=== PATIENT | female | born 2000 | race Caucasian/White ===

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

== ENCOUNTER → 2019-02-06 | Outpatient (REF) | payer OTHER ==
[~2019-02-06] MED LIST changes: +ACET-716 PO
== END ==
LOC: M LAB REF 12:17
PROVIDERS: ATTEND Plastic Surgery Surgery of the Hand
DX: L02.213 Cutaneous abscess of chest wall (principal)

== ENCOUNTER 2019-09-16 09:37 | Emergency (ER) | payer OTHER ==
[~2019-09-16] VITALS: Ht 165.1 cm; Wt 76.0 kg
[~2019-09-16 09:37] MED LIST changes: -ALLE25CA6 PO; +MULT25CA2 PO
--- NOTE | 2019-09-16 10:46 | REP ---
RIGHT SHOULDER, THREE VIEWS: There is no evidence of an acute fracture, dislocation or intrinsic bone disease. IMPRESSION: No fracture or dislocation. Electronically Signed by Rich Manzo MD 09/16/2019 07:53 P
[2019-09-16 10:54] VITALS: BP 129/81
== END 2019-09-16 10:55 | disposition home or self-care (01) ==
LOC: M ED 09:37
DX: S46.011A Strain of muscle(s) and tendon(s) of the rotator cuff of right shoulder, initial encounter (principal); X50.0XXA Overexertion from strenuous movement or load, initial encounter; Y92.89 Other specified places as the place of occurrence of the external cause; Y93.89 Activity, other specified; Y99.0 Civilian activity done for income or pay; Z79.3 Long term (current) use of hormonal contraceptives

== ENCOUNTER → 2019-10-04 | Outpatient (CLI) | payer OTHER ==
--- NOTE | 2019-10-06 10:56 | REP ---
MRI RIGHT SHOULDER: TECHNIQUE: Axial T2 fat sat, gradient echo, sagittal oblique T2 fat sat, coronal oblique T1, T2 fat sat. There is diffuse ill-defined high signal in the supraspinatus tendon compatible with mild tendinopathy/tendinitis. No rotator cuff tendon tear is seen. There are not significant hypertrophic degenerative changes of the acromioclavicular joint. Acromion is type I. Biceps tendon is within the bicipital groove with no tendosynovitis. There is no Hill-Sachs deformity. There is focal edematous signal in the posterior subcutaneous soft tissues superficial to the posterior deltoid muscle. Biceps labral complex is intact. There is no labral tear identified. There is no bone marrow edema or occult fracture. Very small amount of fluid is seen in the subacromial bursa. IMPRESSION: Mild supraspinatus tendinopathy/tendinitis. Mild fluid in the subacromial bursa may indicate mild bursitis. There is mild nonspecific edema in the soft tissues along the superficial surface of the posterior deltoid muscle. Electronically Signed by Rich Manzo MD 10/06/2019 02:44 P
== END ==
LOC: M RAD 08:32
PROVIDERS: ATTEND Orthopaedic Surgery Sports Medicine
DX: M25.511 Pain in right shoulder (principal); M75.81 Other shoulder lesions, right shoulder

== ENCOUNTER → 2020-07-30 | Outpatient (REF) | payer OTHER ==
[~2020-07-30] MED LIST changes: +VITA-243 PO; -VITA500T PO
[2020-07-30 15:46] LABS: CHLAMYDIA DNA AMPLIFICATION NEGATIVE (NEGATIVE); GC DNA AMPLIFICATION NEGATIVE (NEGATIVE)
== END ==
LOC: M SFHCWAGY 13:20
PROVIDERS: ATTEND Advanced Practice Midwife
DX: Z11.3 Encounter for screening for infections with a predominantly sexual mode of transmission (principal); Z12.4 Encounter for screening for malignant neoplasm of cervix; Z01.419 Encounter for gynecological examination (general) (routine) without abnormal findings; Z77.9 Other contact with and (suspected) exposures hazardous to health

== ENCOUNTER → 2024-02-20 | Outpatient (REF) | payer OTHER ==
[~2024-02-20] MED LIST changes: -CRAN400C PO; +CRANBERRY400 MG PO
== END ==
LOC: M SFHCDERM 13:07
PROVIDERS: ATTEND Physician Assistant
DX: L73.9 Follicular disorder, unspecified (principal)

== ENCOUNTER → 2025-01-16 | Outpatient (RCR) | LOC: M EMPSKH 12-25 08:12 | PROVIDERS: ATTEND Family Medicine | DX: Z11.52 Encounter for screening for COVID-19 (principal) ==

== ENCOUNTER → 2025-02-25 | Outpatient (CLI) | payer OTHER, SELFPAY ==
[2025-02-25 10:29] LABS: PLATELET COUNT, AUTOMATED 339 10^3/uL (150-450)
[2025-02-25 10:50] LABS: GC DNA AMPLIFICATION NEGATIVE (NEGATIVE)
[2025-02-25 11:19] LABS: HIV 1&2 SCREEN NEGATIVE (NEGATIVE)
[2025-02-25 11:26] LABS: HEPATITIS C VIRUS ABY INDEX < 0.02 INDEX (<0.8)
== END ==
LOC: M RAD 07:39
PROVIDERS: ATTEND Obstetrics & Gynecology
DX: O30.043 Twin pregnancy, dichorionic/diamniotic, third trimester (principal); Z3A.28 28 weeks gestation of pregnancy

== ENCOUNTER → 2025-03-12 | Outpatient (CLI) | payer OTHER | LOC: M WHC 07:12 | PROVIDERS: ATTEND Obstetrics & Gynecology | DX: O30.043 Twin pregnancy, dichorionic/diamniotic, third trimester (principal); Z3A.31 31 weeks gestation of pregnancy; O32.1XX2 Maternal care for breech presentation, fetus 2 ==

== ENCOUNTER → 2025-03-26 | Outpatient (CLI) | payer OTHER | LOC: M WHC 09:36 | PROVIDERS: ATTEND Obstetrics & Gynecology | DX: O30.043 Twin pregnancy, dichorionic/diamniotic, third trimester (principal); Z3A.32 32 weeks gestation of pregnancy; O32.1XX2 Maternal care for breech presentation, fetus 2 ==

== ENCOUNTER → 2025-04-09 | Outpatient (CLI) | payer OTHER | LOC: M WHC 08:12 | PROVIDERS: ATTEND Obstetrics & Gynecology | DX: O30.043 Twin pregnancy, dichorionic/diamniotic, third trimester (principal); Z3A.00 Weeks of gestation of pregnancy not specified ==

== ENCOUNTER → 2025-04-14 | Outpatient (REF) | payer OTHER ==
[~2025-04-14] MED LIST changes: +ASPI81TA26 PO; +FAMO1TAB11 PO; +PREN200C PO; +VALA1TAB5 PO
== END ==
LOC: M SFHCWAGY 10:19
PROVIDERS: ATTEND Specialist
DX: O30.043 Twin pregnancy, dichorionic/diamniotic, third trimester (principal); Z36.85 Encounter for antenatal screening for Streptococcus B

== ENCOUNTER 2025-04-17 13:00 | Inpatient (IN) | payer OTHER ==
[~2025-04-17] VITALS: Ht 165.1 cm; Wt 106.2 kg
[~2025-04-17 13:00] MED LIST changes: -ASPI81TA26 PO; -FAMO1TAB11 PO; -PREN200C PO; -VALA1TAB5 PO
[2025-04-17] MEDS ORDERED: VALA1TAB5 PO (13:34)
[2025-04-17] MEDS ORDERED: PREN200C PO (13:34)
[2025-04-17] MEDS ORDERED: FAMO1TAB11 PO (13:34)
[2025-04-17] MEDS ORDERED: ASPI81TA26 PO (13:34)
[2025-05-05] VITALS (9 sets, daily range): BP systolic 111–134; BP diastolic 58–76; TEMP 97.9; O2SAT 97–100
[2025-05-05] MEDS ORDERED: TUMS500C PO (07:57)
[2025-05-05] MEDS ORDERED: HOME MED LIST COMPLETE! XX SCH (08:00)
[2025-05-05] MEDS: LACTATED RINGER'S 1000 ML IV STA (08:29)
[2025-05-05 08:51] LABS: PLATELET COUNT, AUTOMATED 365 10^3/uL (150-450)
[2025-05-05] MEDS: LR 1,000 ML IV SCH ×2 (09:32→14:27)
[2025-05-05] MEDS: ceFAZolin SODIUM 2 GM in DEXTROSE 5% (D5W) ADV/MINI-BAG 50 ML IV ONE (10:03)
[2025-05-05] MEDS: BICITRA 30 ML SOLN UDC PO ONE (10:03)
[2025-05-05] MEDS ORDERED: MORPHINE PRES-FREE INJ 10 MG/10 ML VIAL As Ordered ONE (10:17)
[2025-05-05] MEDS ORDERED: dexAMETHasone 4 MG/ML 1 ML VIAL As Ordered ONE (10:21)
[2025-05-05] MEDS ORDERED: KETOROLAC 30 MG/ML 1 ML VIAL As Ordered ONE (10:21)
[2025-05-05] MEDS ORDERED: ONDANSETRON 4MG/2ML VIAL As Ordered ONE (10:22)
[2025-05-05] MEDS ORDERED: PHENYLephrine 500MCG 5ML (100MCG/ML) SYRINGE As Ordered ONE (10:40)
[2025-05-05] MEDS ORDERED: ACETAMINOPHEN 1000MG/100ML IV BAG As Ordered ONE (10:41)
[2025-05-05] MEDS ORDERED: OXYTOCIN 30UNITS IN 0.9% NaCl 500ML IV BAG IV ONE (10:41)
[2025-05-05] MEDS ORDERED: MORPHINE 4 MG/ML 1 ML VIAL IV PRN (11:30)
[2025-05-05] MEDS ORDERED: METHYLERGONOVINE MALEATE 0.2 MG/ML 1 ML VIAL IM PRN (11:30)
[2025-05-05] MEDS ORDERED: ANUSOL HC CREAM 30 GM TOP PRN (11:30)
[2025-05-05] MEDS ORDERED: RHOGAM 300MCG (1500IU) INJ IM SCH (11:30)
[2025-05-05] MEDS ORDERED: SIMETHICONE 80MG CHEW TAB PO PRN (11:30)
[2025-05-05] MEDS ORDERED: PERCOCET 5MG/325MG TAB PO PRN ×2 (11:30)
[2025-05-05] MEDS ORDERED: PERCOCET PO (11:34)
[2025-05-05] MEDS ORDERED: COLA100C5 PO (11:34)
[2025-05-05] MEDS ORDERED: FERR1TAB8 PO (11:34)
[2025-05-05] MEDS ORDERED: IBUP80TA PO (11:34)
[2025-05-05] MEDS: OXYTOCIN DRIP 30 UNITS in IV 1 EA IV SCH (12:00)
[2025-05-05] MEDS ORDERED: HYDROMORPHONE HCL 0.5 MG/0.5 ML SYRINGE IV PRN (12:05)
[2025-05-05] MEDS: SLF 3 ML SYR IV SCH (12:05)
[2025-05-05] MEDS ORDERED: NALOXONE INJ 0.4 MG/1 ML VIAL IV PRN ×2 (12:05)
[2025-05-05] MEDS ORDERED: ONDANSETRON 4MG/2ML VIAL IV PRN (12:05)
[2025-05-05] MEDS ORDERED: **NOTE PATIENT COMMENT** MISC XX SCH (12:05)
[2025-05-05 12:13] LABS: HIV 1&2 SCREEN NEGATIVE (NEGATIVE)
[2025-05-05] MEDS: diphenhydrAMINE 50 MG/ML VIAL IV PRN (12:19)
[2025-05-05 12:21] LABS: HEPATITIS C VIRUS ABY INDEX < 0.02 INDEX (<0.8)
[2025-05-05] MEDS: KETOROLAC 30 MG/ML 1 ML VIAL IV SCH (16:52)
[2025-05-05] MEDS: ONDANSETRON 4MG/2ML VIAL IV PRN (18:33)
[2025-05-05] MEDS: DOCUSATE SODIUM 100 MG CAPSULE PO SCH (20:57)
[2025-05-06] MEDS: CALCIUM CARBONATE 500 MG CHEW U/D PO PRN (00:23)
[2025-05-06 02:00] VITALS: BP 107/61; O2SAT 100
[2025-05-06 05:59] VITALS: BP 106/65; O2SAT 100
[2025-05-06 07:16] LABS: PLATELET COUNT, AUTOMATED 330 10^3/uL (150-450)
[2025-05-06] MEDS: FERROUS SULFATE 325 MG TAB PO SCH (09:43)
[2025-05-06] MEDS: PRENATAL VITAMINS CHEWABLE TABLET PO SCH (09:43)
[2025-05-06] MEDS: IBUPROFEN 800 MG TAB PO SCH (13:48)
[2025-05-06 14:00] VITALS: BP 129/70; O2SAT 99
[2025-05-06 18:01] VITALS: BP 118/69; O2SAT 98
[2025-05-06] MEDS: ACETAMINOPHEN 500 MG TAB PO PRN (21:52)
[2025-05-06 22:00] VITALS: BP 123/72; O2SAT 98
[2025-05-07 02:00] VITALS: BP 122/66; O2SAT 98
[2025-05-07 06:00] VITALS: BP 118/68; O2SAT 100
[2025-05-07] MEDS: MEASLES,MUMPS,RUBELLA VACCINE INJ (MMR-II) SC.IMMUN ONE (09:00)
[2025-05-07 10:00] VITALS: BP 129/67; O2SAT 100
[2025-05-07] MEDS: FLUZONE VACCINE TRI PF(25-26) 0.5ML SYRINGE IM.IMMUN ONE (13:06)
== END 2025-05-07 13:35 | disposition home or self-care (01) | DRG 540 ==
LOC: M LDI 05-05 07:34 → EDSTATUS 05-05 09:45 → M OBS 05-05 12:43
PROVIDERS: ADMIT Obstetrics & Gynecology; ATTEND Obstetrics & Gynecology
PROC: 10D00Z1 Extraction of Products of Conception, Low, Open Approach (ICD-10-PCS; principal; 2025-05-05 09:45)
DX: O32.8XX2 Maternal care for other malpresentation of fetus, fetus 2 (principal); Z37.2 Twins, both liveborn; Z37.0 Single live birth; Z3A.38 38 weeks gestation of pregnancy; O30.043 Twin pregnancy, dichorionic/diamniotic, third trimester

== ENCOUNTER → 2025-04-21 | Outpatient (CLI) | payer OTHER ==
[~2025-04-21] MED LIST changes: +ASPI81TA26 PO; +FAMO1TAB11 PO; +PREN200C PO; +VALA1TAB5 PO
[2025-04-21 12:18] LABS: PLATELET COUNT, AUTOMATED 417 10^3/uL (150-450)
[2025-04-21 14:18] LABS: TOTAL PROTEIN,RANDOM URINE 32.3 MG/DL (0.0-14.0)
[2025-04-21 15:06] LABS: LDH LACTATE DEHYDROGENASE 203 U/L (120-246)
[2025-04-21 15:07] LABS: ALT/SGPT 23 U/L (7.0-40); AST/SGOT 32 U/L (<34); CREATININE FOR GFR 0.76 MG/DL (0.55-1.30); GLOMERULAR FILTRATION RATE > 90.0 (>60)
== END ==
LOC: M PLALAB 08:36
PROVIDERS: ATTEND Specialist
DX: Z34.80 Encounter for supervision of other normal pregnancy, unspecified trimester (principal)

== ENCOUNTER → 2025-04-23 | Outpatient (CLI) | payer OTHER ==
[~2025-04-23] MED LIST changes: +COLA100C5 PO; +FERR1TAB8 PO; +IBUP80TA PO; +PERCOCET PO; +TUMS500C PO
== END ==
LOC: M WHC 09:14
PROVIDERS: ATTEND Obstetrics & Gynecology
DX: O30.043 Twin pregnancy, dichorionic/diamniotic, third trimester (principal); Z3A.36 36 weeks gestation of pregnancy; O32.1XX2 Maternal care for breech presentation, fetus 2

== ENCOUNTER 2025-04-27 18:42 | Outpatient (CLI) | payer OTHER ==
[~2025-04-27] VITALS: Ht 165.1 cm; Wt 107.5 kg
[~2025-04-27 18:42] MED LIST changes: -COLA100C5 PO; -FERR1TAB8 PO; -IBUP80TA PO; -PERCOCET PO; -TUMS500C PO
[2025-04-27 19:16] VITALS: BP 117/69
[2025-04-27 19:36] VITALS: BP 113/60
[2025-04-27 19:51] LABS: PLATELET COUNT, AUTOMATED 366 10^3/uL (150-450)
[2025-04-27 20:11] LABS: TOTAL PROTEIN,RANDOM URINE 25.0 MG/DL (0.0-14.0)
[2025-04-27 20:20] LABS: LDH LACTATE DEHYDROGENASE 207 U/L (120-246)
[2025-04-27 20:21] LABS: ALT/SGPT 24 U/L (7.0-40); AST/SGOT 36 U/L (<34); CREATININE FOR GFR 0.72 MG/DL (0.55-1.30); GLOMERULAR FILTRATION RATE > 90.0 (>60)
[2025-04-27 20:24] VITALS: BP 126/60
[2025-04-27 20:28] VITALS: BP 133/70
[2025-04-27] MEDS ORDERED: HOME MED LIST COMPLETE! XX SCH (21:20)
== END 2025-04-27 21:05 | disposition home or self-care (01) ==
LOC: M LDO 18:42
PROVIDERS: ATTEND Advanced Practice Midwife
DX: O26.893 Other specified pregnancy related conditions, third trimester (principal); R03.0 Elevated blood-pressure reading, without diagnosis of hypertension; O30.043 Twin pregnancy, dichorionic/diamniotic, third trimester; O99.213 Obesity complicating pregnancy, third trimester; E66.9 Obesity, unspecified; Z3A.37 37 weeks gestation of pregnancy
CPT/HCPCS: 36415; 59025; 82247; 82570; 83615; 84156; 84450; 84460; 84550; 85027; G0463